=== PATIENT | male | born 1990 | race Caucasian/White ===

== ENCOUNTER 2025-02-15 09:38 | Inpatient (IN) ==
--- NOTE | 2025-02-15 10:41 | Emergency Department Note ---
ED Provider Note CHIEF COMPLAINT: [] HISTORY OF PRESENTING ILLNESS: [] REVIEW OF SYSTEMS: See HPI for pertinent positives and pertinent negatives. ALLERGIES: See below MEDICATIONS: See below PAST MEDICAL HISTORY: See below PHYSICAL EXAM: [] DIFFERENTIAL DIAGNOSIS: [] ED COURSE AND MEDICAL DECISION MAKING: HISTORY FROM INDEPENDENT HISTORIAN: [] MEDICATIONS GIVEN: [] MONITOR: Continuous equipment monitor phototypesetting: Order was placed for continuous equipment monitor phototypesetting. Patient was placed on the equipment monitor phototypesetting and continuous pulse ox. Patient was noted to be in normal sinus rhythm at an initial rate of [] bpm per my interpretation. EKG: EKG was interpreted by myself as []. INTERPRETATION OF LABS: I interpreted the labs with full lab results as below in the lab section of this note. Pertinent lab results discussed in the MDM section below. INTERPRETATION OF IMAGING: Imaging studies were interpreted by myself and read by radiology as per the imaging section of this note. EXTERNAL RECORDS REVIEWED: [] CHRONIC MEDICAL/SOCIAL CONDITIONS AFFECTING CARE: [] ESCALATION OF CARE CONSIDERED: [] CONSULTATIONS: [] PROCEDURES: [] MDM SUMMARY: The patient is a pleasant, [] who arrives to the emergency department for evaluation of the above-stated complaint. []. DIAGNOSIS: [] The chart was completed utilizing [employer] Speech voice recognition software. Grammatical errors, random word insertions, pronoun errors, and incomplete sentences are an occasional consequence of this system due to software limitations, ambient noise, and hardware issues. Any formal questions or concerns about the content, text, or information contained within the body of this dictation should be directly addressed to the provider for clarification. TREATMENT PLAN/DISCHARGE INSTRUCTIONS: [] Past Med/Surg History Problem List (Updated 02/14/25 @ 12:42 by TRELL Godinez) Dental infection (Acute) Pain, dental (Acute) Pain, dental No pertinent past medical history Medical History Insomnia Stomach problems No pertinent family history Surgical History History of hernia repair Family History Other Cardiac disease Social History Smoking Status: Current every day smoker Tobacco Type: Cigarettes Preferred Language: Luxembourger Feels Safe at Home: Yes Allergies Allergies Allergy/AdvReac Type Severity Reaction Status Date / Time No Known Allergies Allergy Verified 05/02/24 08:40 Home Meds Previous Rx's Medication Instructions Recorded oxycodone 5 mg tablet 5 mg PO Q6H PRN pain #15 tabs 06/27/24 pantoprazole 40 mg tablet,delayed 40 mg PO DAILY #30 tabs 06/27/24 release (Protonix) tramadol 50 mg tablet 50 mg PO BID PRN pain #31 tabs 12/01/24 amoxicillin 875 mg-potassium 1 tab PO BID 10 days #20 tabs 02/14/25 clavulanate 125 mg tablet oxycodone 5 mg tablet 5 mg PO Q8H PRN pain #10 tabs 02/14/25 Results & Data (ED) Vital Signs Vital Signs - 24 hr 02/15/25 09:41 Temperature 37.1 C Temperature Source Temporal Artery Scan Pulse Rate 78 Respiratory Rate 18 Respiratory Effort / Characteristics Non-Labored Spontaneous Respiratory Depth Normal Respiratory Pattern Regular Blood Pressure 156/99 H Blood Pressure Mean 118 Pulse Oximetry 97 Oxygen Delivery Method Room Air Sepsis Recent Fever Within 48 Hours No Sepsis New/Unexplained Change in Mental Status N/A Sepsis Action Taken by Nursing No Action Required Discharge Plan Visit Data Chief Complaint: Dental/Oral Stated Complaint: TOOTH PAIN ED Provider: [facility] Midlevel Provider: Debbi Henry Forms Stand Alone Forms: [facility] Prescriptions Prescriptions: No Action amoxicillin-pot clavulanate 875-125 mg tablet 1 tab PO BID 10 Days Qty: 20 0RF oxycodone 5 mg tablet 5 mg PO Q8H PRN (Reason: pain) Qty: 10 0RF pantoprazole [Protonix] 40 mg tablet,delayed release (DR/EC) 40 mg PO DAILY Qty: 30 0RF oxycodone 5 mg tablet 5 mg PO Q6H PRN (Reason: pain) Qty: 15 0RF tramadol 50 mg tablet 50 mg PO BID PRN (Reason: pain) Qty: 31 0RF Referrals Referrals: Jim Padron MD [Primary Care Provider] -
[2025-02-15] MEDS: oxyCODONE HCL IR 5 MG TAB (IMMEDIATE RELEASE) PO STA (10:46)
[2025-02-15] MEDS: ACETAMINOPHEN 500 MG TAB PO STA (10:47)
[2025-02-15] MEDS: KETOROLAC TROMETHAMINE 60 MG/2 ML VIAL IM STA (10:47)
[2025-02-15] MEDS: ONDANSETRON INJ 2 MG/ML 2 ML VIAL IV STA (11:58)
[2025-02-15] MEDS: MoRPHine SULFATE 4 MG/ML 1 ML CARP\\VIAL IV STA (12:00)
[2025-02-15] MEDS: SODIUM CHLORIDE 0.9% 1,000 ML IV ONE (12:05)
[2025-02-15] MEDS: AMPICILLIN/SULBACTAM SOD 3,000 MG/100 ML BAG IV SCH (12:09)
[2025-02-15 12:15] LABS: Basophils # (auto) 0.06 K/uL (0.00-0.20); Basophils % (auto) 0.7 %; Eosinophils # (auto) 0.14 K/uL (0.00-0.50); Eosinophils % (auto) 1.6 %; Hematocrit (blood only) 52.5 % (42.0-52.0); Hemoglobin 19.1 g/dl (14.0-18.0); Immature Granulocytes # (auto) 0.02 K/uL (0.01-0.20); Immature Granulocytes % (auto) 0.2 %; Lymphocytes # (auto) 1.82 K/uL (1.20-3.40); Lymphocytes % (auto) 21.3 %; Mean Corpuscular Hemoglobin 32.5 pg (25.0-34.0); Mean Corpuscular Hgb Conc 36.4 g/dL (32.0-36.0); Mean Corpuscular Volume 89.3 fL (80.0-100.0); Mean Platelet Volume 9.9 fL (9.4-12.4); Monocytes # (auto) 0.44 K/uL (0.11-0.59); Monocytes % (auto) 5.2 %; Neutrophils # (auto) 6.05 K/uL (1.40-6.50); Platelet Count 269 K/uL (130-400); RDW Coefficient of Variation 12.2 % (11.5-14.5); RDW Standard Deviation 40.1 fL (36.4-46.3); Red Blood Count 5.88 M/uL (4.70-6.10); White Blood Count 8.53 K/ul (4.8-10.8)
[2025-02-15] MEDS ORDERED: ONDANSETRON INJ 2 MG/ML 2 ML VIAL IV PRN (12:25)
--- NOTE | 2025-02-15 12:26 | History & Physical Report ---
Date of Service February 15, 2025 Assessment & Plan (1) Dental infection: (2) Pain, dental: Plan #Right lower jaw pain likely 2/2 infection vs. broken tooth -consult dentist -IV abx -pain control -fluids -NPO for now, unclear if procedure to be done today or not #GERD -PPI IVF, NPO for now PPI, DVT ppx History of Present Illness Primary Care Provider: Jim Padron MD 34M pmh GERD who presents with jaw pain. Patient states approximately 6d ago he began to have R lower jaw pain which worsened until yesterday, when he presented to the ED and was d/c with pain m edication and instructions to see a dentist outpatient. Patient's pain significantly increased so he represented. 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 On my evaluation patient's symptoms are improved, pain is still present but significantly improved. No other issues or problems. No fever, chills, other symptoms. Allergies Allergy/AdvReac Type Severity Reaction Status Date / Time No Known Allergies Allergy Verified 02/15/25 11:43 Home Medications Medication Instructions Recorded Confirmed Type No Known Home Medications 02/15/25 02/15/25 History Past Med/Surg History Problem List (Updated 02/14/25 @ 12:42 by TRELL Godinez) Dental infection (Acute) Pain, dental (Acute) Pain, dental No pertinent past medical history Medical History Insomnia Stomach problems No pertinent family history Surgical History History of hernia repair Family History Other Cardiac disease Social History Smoking Status: Current every day smoker Tobacco Type: Cigarettes Preferred Language: Slovenian Feels Safe at Home: Yes Review of Systems Constitutional: no fever and no chills Ear, Nose, Mouth, Throat: Jaw pain, specifically R lower Physical Exam Constitutional: WD/WN, vitals as above ENMT: Jaw pain on deep palpation right lower Results & Data Results & Data Vital Signs (Past 12 Hours) Vital Signs Temp Pulse Pulse Resp BP BP Pulse Ox 02/15/25 12:14 78 02/15/25 11:39 77 18 152/104 H 97 02/15/25 09:41 37.1 C 78 18 156/99 H 97 O2 Del Method 02/15/25 12:14 02/15/25 11:39 Room Air 02/15/25 09:41 Room Air Laboratory Results Abnormal lab results 02/15/25 Range/Units 12:02 Hgb 19.1 H (14.0-18.0) g/dl Hct 52.5 H (42.0-52.0) % MCHC 36.4 H (32.0-36.0) g/dL Code Status & VTE Plan VTE Prophylaxis Plan VTE Prophylaxis will be ordered: Yes
[2025-02-15 12:30] LABS: Albumin Level 5.2 gm/dl (3.4-5.0); Bilirubin,Total 0.7 mg/dl (0.2-1.0); Calcium 9.6 mg/dl (8.6-10.3)
[2025-02-15 12:36] LABS: Albumin Globulin Ratio 1.6 (0.9-2); BUN Creatinine Ratio 15.8 (10-20); Creatinine Clr Calc Pharmacy 196.6 ml/min; Globulin 3.3 gm/dl (2.5-4.0); Total Protein 8.5 gm/dl (6.0-8.3)
[2025-02-15 12:46] LABS: Prothrombin Time 10.8 Seconds (9.0-12.0)
[2025-02-15] MEDS: SODIUM CHLORIDE 0.9% 1,000 ML IV SCH (14:23)
[2025-02-15] MEDS: MoRPHine SULFATE 2 MG/ML CARP IV PRN (14:54)
[2025-02-15] MEDS ORDERED: ACETAMINOPHEN 325 MG TAB PO PRN (15:00)
[2025-02-15] MEDS ORDERED: NALOXONE NASAL SPRAY 4 MG ER HOMEPACK PRN (15:11)
[2025-02-15] MEDS: MoRPHine SULFATE 4 MG/ML 1 ML CARP\\VIAL IV PRN (15:36)
[2025-02-15] MEDS ORDERED: NALOXONE HCL 0.4 MG/1 ML VIAL/CARP IV PRN (15:56)
--- NOTE | 2025-02-15 16:52 | Oral/Maxillofacial Consult ---
Date of Consultation February 15, 2025 Assessment & Plan (1) Dental infection: (2) Pain, dental: (3) No pertinent past medical history: History of Present Illness Attending Physician: Obed Hernández MD History of Present Illness (1) Dental infection: (2) Pain, dental: Plan #Right lower jaw pain likely to infection and fractured tooth # 30 -consult [facility] -IV abx -pain control -fluids -NPO at midnight History of Present Illness Primary Care Provider: Jim Padron MD 34M H/O GERD who presents with acute jaw pain Failed outpatint treatment Observation in Hospital for pain control and IV fluids, IV antibiotics For OR tomorrow as per emergency OR schedule. Patient states approximately 6d ago he began to have R lower jaw pain which worsened until yesterday, when he first presented to the ED he was told to follow up with a dentist and given pain medication and instructions to see a dentist outpatient. Patient's pain significantly increased so he returned to ED in severe pain. 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 The oral exam shows that # 30 crown is completly gone with exposure of the nerves. Not able to touch the tooth as very painful. Radiolucent lesion is associated with the # 30 root apex is evident on the CT. Clinical localized swelling in the mucobuccal fold is starting to develop. No other issues or problems. No fever, chills, other symptoms. Treatment Plan: I will do an intraoral I and D tomorrow in the OR with extraction of # 30 May have diet as tolerated tonight NPO midnight OR in AM Consent signed Set up with general anesthesia in hospital due to complexity of the procedure I reviewed the treatment plan and consent with the patient Understanding was expressed. Time was given for questions regarding the surgery, risks and post op care. Discussed alternative to treatment--procedure as planned, Do not do surgery The following teeth are decayed and fractured and removal is indicated TAMANNA:# 30 with associated I&D Risks discussed: Bleeding,Pain,swelling,infection, dry socket, delayed healing, nerve injury to face,lips,tongue,chin area which could be permanent (rare). TMJ, jaw stiffness, change in bite (rare), ear pain (referred). Sinus problems like fistula or infection. Need to leave a small root fragment in place to avoid injury to nerve or sinus. Relationship of # 30 tooth roots to nerve and risk of jaw fracture-very rare. Allergies Allergy/AdvReac Type Severity Reaction Status Date / Time No Known Allergies Allergy Verified 02/15/25 11:43 Home Medications Medication Instructions Recorded Confirmed Type No Known Home Medications 02/15/25 02/15/25 History Past Med/Surg History Problem List Dental infection (Acute) Pain, dental (Acute) No pertinent past medical history Medical History Insomnia Stomach problems No pertinent family history Surgical History History of hernia repair Family History Cardiac disease Social History Smoking Status: Current every day smoker Tobacco Type: Cigarettes Preferred Language: Nicaraguan Feels Safe at Home: Yes Physical Exam Constitutional WD/WN, vitals as above Eyes PERRL, conjunctivae normal, anicteric sclerae Mouth fractured # 30, acute pain, abscessed soft tissue, no other dental issures noted, all otehr teeth w/o dental caries Neck trachea midline, no thyromegaly Respiratory normal respiratory effort, lungs clear to auscultation Auscultation: lungs clear to auscultation bilaterally Cardiovascular RRR, no murmur, no edema Rate/Rhythm: regular rate and regular rhythm Neurologic PERRL, EOMI, accommodation nl, no face palsy, no dysarthria, no para esthesia assorted with the pain, radiolucent lesion at apex of # 30. The pain is consistent with a dental infection I gave consideration to Trigeminal neuralgia but symptoms are not consistent with that diagnosis Psychiatric A+Ox3, very anxious due to severe pain Orientation: cooperative Lymphatic no cervical or axillary lymphadenopathy noted Allergies Allergy/AdvReac Type Severity Reaction Status Date / Time No Known Allergies Allergy Verified 02/15/25 11:43 Home Medications Medication Instructions Recorded Confirmed Type No Known Home Medications 02/15/25 02/15/25 History Patient History Medical History Insomnia Stomach problems No pertinent family history Surgical History History of hernia repair Family History Other Cardiac disease Social History Smoking Status: Current every day smoker Tobacco Type: Cigarettes Do You Dip or Chew Tobacco: No; Hx Alcohol Use: Yes Alcohol type: beer Hx Substance Use: Yes Last Used Substance: Days (ago) Last Used Substance Other:: pt has medical marijuana card. Preferred Language: Nicaraguan Communication Ability: Effective Rail Equipment Operator Required: No Beliefs That Will Affect Care: None Current Living Situation: Alone Current Living Situation Comment: lives at home with his children. Other Information That Helps Us Care for You: No Feels Safe at Home: Yes Safety Concerns: Feels Safe At This Time Assistive Devices: None Assistive Devices Comment: None needed. Results & Data Vital Signs (Past 12 Hours) Vital Signs Temp Pulse Pulse Resp BP BP Pulse Ox 02/15/25 13:59 36.6 C 70 15 165/108 H 97 02/15/25 13:33 65 13 96 02/15/25 13:30 162/108 H 02/15/25 13:03 62 14 96 02/15/25 13:00 169/103 H 02/15/25 12:14 78 02/15/25 11:39 77 18 152/104 H 97 02/15/25 09:41 37.1 C 78 18 156/99 H 97 O2 Del Method 02/15/25 13:59 Room Air 02/15/25 13:33 02/15/25 13:30 02/15/25 13:03 02/15/25 13:00 02/15/25 12:14 02/15/25 11:39 Room Air 02/15/25 09:41 Room Air PG Care Time/CCT Total # of Minutes Spent Total Time Spent with Patient: Total time spent is greater than 50% in coordination of care (as documented) at patient's floor/unit and/or counseling patient: Coding Level of Care Code 02838 OFFICE CONSULT LVL 01/05M Diagnoses Dental infection K04.7 Pain, dental K08.89 No pertinent past medical history Z78.9
[2025-02-15] MEDS: oxyCODONE/ACETAMINOPHEN 5mg/325mg TAB PO PRN (17:30)
[2025-02-15] MEDS: KETOROLAC 30 MG/ML VIAL IV ONE (21:08)
[2025-02-16 07:12] LABS: Basophils # (auto) 0.04 K/uL (0.00-0.20); Basophils % (auto) 0.7 %; Eosinophils # (auto) 0.21 K/uL (0.00-0.50); Eosinophils % (auto) 3.5 %; Hematocrit (blood only) 43.6 % (42.0-52.0); Hemoglobin 15.1 g/dl (14.0-18.0); Immature Granulocytes # (auto) 0.02 K/uL (0.01-0.20); Immature Granulocytes % (auto) 0.3 %; Lymphocytes # (auto) 1.83 K/uL (1.20-3.40); Lymphocytes % (auto) 30.8 %; Mean Corpuscular Hgb Conc 34.6 g/dL (32.0-36.0); Mean Corpuscular Volume 92.4 fL (80.0-100.0); Monocytes # (auto) 0.65 K/uL (0.11-0.59); Monocytes % (auto) 10.9 %; Neutrophils % (auto) 53.8 %; Platelet Count 190 K/uL (130-400); RDW Coefficient of Variation 12.3 % (11.5-14.5); RDW Standard Deviation 41.9 fL (36.4-46.3); Red Blood Count 4.72 M/uL (4.70-6.10); White Blood Count 5.95 K/ul (4.8-10.8)
[2025-02-16] MEDS: PANTOprazole 40 MG/10 ML SYR IV SCH (07:31)
[2025-02-16 07:33] LABS: BUN Creatinine Ratio 20.2 (10-20); Calcium 8.5 mg/dl (8.6-10.3); Chol HDL Ratio 4.7 (0-5); Creatinine Clr Calc Pharmacy 177.8 ml/min
[2025-02-16] MEDS ORDERED: MIDAZOLAM HCL 1 MG/ML 2ML VIAL ONE (09:54)
[2025-02-16] MEDS ORDERED: LIDOCAINE 2% 2 ML VIAL/AMP(20MG/ML) INFIL ONE (09:54)
[2025-02-16] MEDS ORDERED: ROCURONIUM BROMIDE 10 MG/ML 5 ML VIAL IV ONE (09:54)
[2025-02-16] MEDS ORDERED: fentaNYL citrate PF 100 MCG/2 ML VIAL ONE ×2 (09:54→12:11)
[2025-02-16] MEDS ORDERED: PROPOFOL IV EMULSION 10 MG/ML 20 ML VIAL IV ONE (09:54)
[2025-02-16] MEDS ORDERED: ONDANSETRON INJ 2 MG/ML 2 ML VIAL ONE (10:06)
--- NOTE | 2025-02-16 10:42 | Anesthesiology Consultation ---
Date of Service February 16, 2025 Assessment & Plan Chart Review Chart Review: Acceptable Risk for Surgery and Patient NOT seen in Pre Admission Testing Consults Requested none History Surgery Operation Date: 02/16/25 12:00 Proposed Procedures p Incision and Drainage of Right Lower Side of Mouth, Extraction of Tooth #30 - aMrio Oglesby, DMD Height/Weight Height: 6 ft 4 in Weight: 121.1 kg Allergies Allergy/AdvReac Type Severity Reaction Status Date / Time No Known Allergies Allergy Verified 02/15/25 11:43 Medications Home Medications Medication Instructions Recorded Confirmed Last Taken No Known Home Medications 02/15/25 02/15/25 Unknown Active Medications Generic Name Dose Route Start Last Admin Trade Name Freq PRN Reason Stop Dose Admin Ampicillin Sodium/Sulbactam Sodium 3,000 mg in 100 mls @ 200 mls/hr 02/15/25 11:45 02/16/25 06:53 Unasyn IV 02/17/25 11:44 Infused Q6H DEUCE Infusion Sodium Chloride 1,000 mls @ 125 mls/hr 02/15/25 12:30 02/16/25 05:37 Nss IV 02/18/25 12:29 125 mls/hr .Q8H DEUCE Administration Pantoprazole Sodium 40 mg in 10 mls @ 5 mls/min 02/16/25 09:00 02/16/25 07:31 Protonix IV 03/18/25 08:59 5 mls/min DAILY DEUCE Administration Morphine Sulfate 2 mg 02/15/25 12:28 02/15/25 14:54 Morphine Sulfate 2 Mg/Ml Carp IV 03/01/25 12:27 2 mg Q3H PRN Administration Pain (6,7,8,9,10) Morphine Sulfate 4 mg 02/15/25 15:00 02/16/25 06:00 Morphine Sulfate 4 Mg/Ml 1 Ml Carp\Vial IV 03/01/25 14:59 4 mg Q3H PRN Administration Breakthrough Pain Oxycodone/Acetaminophen 2 tab 02/15/25 16:56 02/16/25 07:35 Oxycodone/Acetaminophen 5mg/325mg Tab PO 03/01/25 16:55 2 tab Q4H PRN Administration Pain NPO Date Last Intake of Fluids: 02/15/25 Time Last Intake of Fluids: 23:59 Date Last Intake of Solids: 02/15/25 Time Last Intake of Solids: 23:59 Past Medical History Medical History Insomnia Stomach problems No pertinent family history Past Family History Family History Other Cardiac disease Past Surgical History Surgical History History of hernia repair Social History Smoking Status: Current every day smoker Do You Dip or Chew Tobacco: No Hx Alcohol Use: Yes Alcohol type: beer alcohol intake frequency: a few times a week Hx Substance Use: Yes substance use type: marijuana Last Used Substance: Days (ago) Last Used Substance Other:: pt has medical marijuana card. Physical Exam Vital Signs Last Vital Signs Temp 36.4 C L 02/16/25 07:16 Pulse 63 02/16/25 07:16 Resp 16 02/16/25 07:16 BP 164/99 H 02/16/25 07:16 Pulse Ox 98 02/16/25 07:16 O2 Del Method Room Air 02/16/25 07:16 Testing Laboratory Results 02/16/25 05:51 02/16/25 05:51 PT 10.8 Seconds (9.0-12.0) 02/15/25 12:02 INR 1.0 (0.9-1.1) 02/15/25 12:02
[2025-02-16] MEDS: ACETAMINOPHEN 1,000 MG/100 ML VIAL IV STA (10:49)
[2025-02-16] MEDS: HYDROmorphone INJ 0.5 MG/0.5 ML SYR IV STA (11:32)
--- NOTE | 2025-02-16 11:43 | History & Physical Bridge Note ---
Date of Service February 16, 2025 History & Physical Bridge Note I have examined the patient, reviewed the History & Physical and in the interval since the performance of the History & Physical I have noted the following changes of clinical significance: no changes noted. The pain is controlled somewhat with the Percocet, swelling still present. Plan--I&D with extraction of # 30 Hopefully can be discharged after meets all criteria for D/C Rx Pain Meds and antibiotics.
[2025-02-16] MEDS: CHLORHEXIDINE GLUCONATE 0.12% 480 ML MT ONE (12:01)
[2025-02-16] MEDS ORDERED: DEXAMETHASONE SOD INJ 4 MG/ML VIAL ONE (12:18)
[2025-02-16] MEDS ORDERED: SUGAMMADEX SODIUM 200 MG/2 ML VIAL IV ONE (12:20)
[2025-02-16] MEDS: BUPIVACAINE/EPINEPHRINE 0.5% 1:200,000 1.8 ML CARP ONE (12:21)
--- NOTE | 2025-02-16 13:01 | Anesthesiology Progress Note ---
Date of Service February 16, 2025 Anesthesia Post Procedure Vital Signs Vital Signs: Temp Pulse Pulse Resp BP BP Pulse Ox 02/16/25 12:55 73 13 146/90 H 98 02/16/25 12:45 69 16 160/96 H 99 02/16/25 12:35 36.1 C L 67 16 151/117 H 100 02/16/25 07:16 36.4 C L 63 16 164/99 H 98 02/15/25 20:15 36.6 C 75 18 164/95 H 97 02/15/25 13:59 36.6 C 70 15 165/108 H 97 02/15/25 13:33 65 13 96 02/15/25 13:30 162/108 H 02/15/25 13:03 62 14 96 O2 Del Method O2 Flow Rate 02/16/25 12:55 Oxymask 5 02/16/25 12:45 Oxymask 5 02/16/25 12:35 Oxymask 11 02/16/25 07:16 Room Air 02/15/25 20:15 Room Air 02/15/25 13:59 Room Air 02/15/25 13:33 02/15/25 13:30 02/15/25 13:03 Pain Intensity Mouth: Pain Intensity: 9 Transfer of Care Handoff Completed per policy Notes Mental Status: alert / awake / arousable Patient Amnestic to Procedure: Yes Nausea / Vomiting: adequately controlled Pain: adequately controlled Airway Patency, RR, SpO2: stable & adequate BP & HR: stable & adequate Hydration State: stable & adequate Anesthetic Complications: no major complications apparent and Pt Satisfied with anesthetic care
--- NOTE | 2025-02-16 13:08 | Operative Report ---
PG Post Operative Report Pre & Post Diagnosis Operation Date: 02/16/25 12:00 Pre-Op Diagnosis: Dental Infection Post-Op Diagnosis: Dental Infection I identified the patient and participated in the time-out.: Yes Procedure Operation Date: 02/16/25 12:00 Actual Procedures p Incision and Drainage of Right Lower Side of Mouth, Extraction of Tooth #3 ((Right) - Mario Oglesby DMD Surgeon Mario Oglesby DMD Principal Librarian none Estimated Blood Loss 2 Findings Consistent with Post-Op Diagnosis swollen mucobuccal fold and fractured # 30 Acute pain Specimens none Drains none Anesthesia Type General Complications none Disposition Accompanied Patient To Recovery: Yes Indications acute infection with intense pain not controlled as out patient Description of Procedure Actual Procedures K04.6 Infected tooth # 30 K12.1 Infected mucobuccal space lower right CPT 39369 I&D [id number] Extraction # 30 Incision and Drainage right mucobuccal space abscess; Removal of Tooth #30 (Not Applicable) - Mario Oglesby DMD Once cleared for surgery general anesthesia was achieved, the eyes were protected by the anesthesia dept criteria. A time out was take for patient ID, antibiotics, equipment and position antoni ification once all agreed the procedure began. Local anesthesia using Marcaine with a vasoconstrictor ( 1.8 ml per site) given into right inferior alveolar nerve A throat pack was placed after the oral cavity was irrigated with saline. Once a surgical level of anesthesia was obtained and the local anesthesia was given time for the blocks the surgery was started. I turned my attention to the infection which was located in the mucobuccal space The tongue was elevated and there was also swelling associated with tooth # 30( see CT scan report) Incision and Drainage CPT 76911--C03.1 Using a 15 blade an incision was made lateral to the alveolar ridge in the swollen mucobuccal space. Once the incision was made a lot of pus extruded from the site. A curved hemostat was carefully placed into the infected space along the lateral mandible to drain the subperiosteal space. Some further drainage was now allowed to escape. I palpated the cheek area and no further drainage was expressed. The area was irrigated with at least 100 ml of NS solution. I now turned my attention to remove the # 30 tooth. Lower # 30 A0906--D97.6 The full thick Muco-periosteal flap was made on the facial aspect from # 31-28. The flap was reflected to expose the the subperiosteal space the bone adjacent to # 30. The rongeur was used to remove bone, the tooth was removed with a 301 elevator, the mental nerve was intact, there was a large amount of granulation tissue on the apex and some more pus that was expressed. I trimmed the irregular bone and sutured the sites closed with a 2-0 chromic. I inspected the sites to insure all bleeding was controlled. I removed the throat pack and suctioned the throat. A gauze pressure dressings was placed. All instrument and sponge count was correct. The patient was allowed to awake from the anesthesia. Once full awake the anesthesia tube was removed and the patient was taken to the recovery room with all vital sign stable. The patient tolerated the surgery very well. He will transferred to the floor and once all D/C criteria are met will be discharged to home. I will follow the patient in my office, Rx and instructions will be given upon discharge. Follow up as needed I attest to the content of the Intraoperative Record and any orders documented therein. Any exceptions are noted below.
--- NOTE | 2025-02-16 13:18 | Discharge Summary ---
Date of Service February 16, 2025 Admission HPI Per Admitting Provider 34M pm GERD who presents with jaw pain. Patient states approximately 6d ago he began to have R lower jaw pain which worsened until yesterday, when he presented to the ED and was d/c with pain medication and instructions to see a dentist outpatient. Patient's pain significantly increased so he represented. ED SPECIAL SYSTEMS TECHNICIAN contacted [facility] Dr Oglesby who recommended admission w/IV abx and consult. On my evaluation patient's symptoms are improved, pain is still present but significantly improved. No other issues or problems. No fever, chills, other symptoms. To OR for I&D with extraction of # 30 Problem: Pain,swelling located---lower right Finding: There is a carious, fractured and infected tooth at site#:30 Plan: Surgical removal of the following # 30 with I&D Procedure report: After a complete H&P/ vital signs and oral exam was completed the patient was ready for the surgical procedure. Informed consent was reviewed and the consent form was signed. I gave them time to discuss any questions and if I explained the surgery that I will be performing to their understanding. The patient was positioned and light adjusted, Peridex mouth rinse was used and a final time out was taken to review the correct procedure, once agreed the local anesthesia was given in the standard fashion for the area of surgery. Local Anesthesia: Using 1.8 cc Xylocaine 2% with 1/100,000 epi as a block and 1 cc Articaine 4% with epi as an infiltration, profound anesthesia was obtained within 5-10 jessy yuridia. Surgical Note: Now using a periosteal elevator the tissue was reflected to expose the alveolar bone. The rongues was used to remove bone to allow the forceps to engage solid tooth structure. Using a controlled force the tooth was extracted in the standard manner. Once removed the roots were inspected and the socket was curetted. Sutures used: 2-0 Chromic A gauze pressure pack was placed over the socket and the patient was instructed to bite for 10 minutes. Rx given: Augmentin and Percocet Post Op instructions: At this time I inspected the site: bleeding was controlled, instructions given by nursing staff (diet, oral care, use of gauze, follow up, pain management, activity, no driving if narcotics were Rx.) Discharge: The patient tolerated the procedure extremely well Patient was discharged from Recovery to floor and then OK for D/C once all D/C are met. Surgeon: Mario Oglesby DMD Oral Maxillofacial Surgery [facility] Admission Exam (Per Admitting) ENMT pain and swelling from fractured # 30 Discharge Data Consultations 02/15/25 11:51 ED Decision to Admit Stat 02/15/25 12:27 Consult OMS Routine Procedures Performed Operation Date: 02/16/25 12:00 Actual Procedures p Incision and Drainage of Right Lower Side of Mouth, Extraction of Tooth #30(Right) - Mario Oglesby, DMD Discharge Instructions ADDITIONAL ACTIVITY RECOMMENDATIONS: * [place] teeth after every meal. It is very important to keep your mouth clean to prevent infection. * Starting tonight rinse with the Peridex as directed then 2 x a day * it is very important to keep well hydrated, this prevents fever and possible dry socket pain SPECIAL CARE INSTRUCTIONS: *It is not uncommon that between day 2-4 that your swelling will be at its worst this is very normal, do not be alarmed. * Keep ice on the side of your face for the next 24 to 36 hours. This will help keep the swelling down. * After 36 hours, apply heat (hot water bottle or heating pad) for the next two days, as often as possible. * Tomorrow start rinsing your mouth with 1/2 teaspoon salt in 8 ounces warm water. This rinse should be used every 4-6 hours. * You may experience slight nausea. To prevent this, never take your medication on an empty stomach. If nauseated, take small sips of edin merly until you feel better; then you may start on applesauce and toast. * A certain amount of bleeding is to be expected. It is often possible to control mild oozing by placing folded gauze over the area and biting down for 30 minutes. If you are unable to control excessive bleeding, * You may experience some discomfort for a few days. If pain or swelling increases, Call Dr Oglesby * Return to the office for a follow up check up on: call if needed * office address--[address] phone # [phone] Coding Level of Care Code None
[2025-02-16 13:27] VITALS: O2SAT 97
[2025-02-16] MEDS ORDERED: oxyCODONE/ACETAMINOPHEN 5mg/325mg TAB PO PRN (14:07)
[2025-02-16 14:15] VITALS: PULSE 86; RESP 15; TEMP 97.9
[2025-02-16 14:43] VITALS: BP 150/87
--- NOTE | 2025-02-16 16:57 | Hospitalist Progress Note ---
Date of Service February 16, 2025 Assessment & Plan (1) Dental infection: (2) Pain, dental: Plan #Right lower jaw pain likely 2/2 infection vs. broken tooth -[facility] consult, appreciate recs, see discharge summary and discharge list for details -given dilaudid IV x1 for pain preop, ordered by this provider -medically stable for discharge #GERD -PPI I spent a total of 30 minutes in direct patient care, including [id number] time with the patient and/or family, reviewing medical records, ordering and reviewing diagnostic tests, and coordinating care with other healthcare providers. This time includes: history taking, physical examination, medical decision making, counseling, ECG interpretation, imaging interpretation, lab interpretation, orders, and education, excluding time spent in the performance of separately billed services. Admission and Anticipated Discharge Date Admission Date: February 15, 2025 Subjective Patient seen and examined at bedside. Patient doing well today. In a bit of pain preprocedure. Review of Systems Review of Systems: CONSTITUTIONAL: Patient denies fevers, chills, sweats and weight changes. EYES: Patient denies any visual symptoms. EARS, NOSE, AND THROAT: tooth pain CARDIOVASCULAR: Patient denies chest pains, palpitations, orthopnea and paroxysmal nocturnal dyspnea. RESPIRATORY: No dyspnea on exertion, no wheezing or cough. GI: No nausea, vomiting, diarrhea, constipation, abdominal pain, hematochezia or melena. : No urinary hesitancy or dribbling. No nocturia or urinary frequency. No abnormal urethral discharge. MUSCULOSKELETAL: No myalgias or arthralgias. NEUROLOGIC: No chronic headaches, no seizures. Patient denies numbness, tingling or weakness. PSYCHIATRIC: Patient denies problems with mood disturbance. No problems with anxiety. ENDOCRINE: No excessive urination or excessive thirst. DERMATOLOGIC: Patient denies any rashes or skin changes. Physical Exam Physical Exam: Gen: A&O 3 NAD HEENT: NCAT, EOMI, not icteric. External ears normal. No rhinorrhea. Moist mucous membranes. Noted dental complications Neck: Supple, full range of motion, no observable masses, No meningeal sign. Lungs: No Respiratory distress. CV: RRR, no edema. Abdomen: Soft, nondistended, No rebound tenderness. MSK: No joint swelling, no redness. Skin: No rashes, petechiae, lesions. Normal color per patient. Neuro: Normal Gait, Grossly intact. Psych: Appropriate for situation. Results & Data Results & Data Vital Signs (Past 12 Hours) Vital Signs Temp Pulse Resp BP Pulse Ox O2 Del Method O2 Flow Rate 02/16/25 14:43 150/87 H 02/16/25 14:23 86 02/16/25 14:11 36.6 C 86 15 177/118 H 97 Room Air 02/16/25 13:20 36.7 C 88 16 148/85 H 97 Room Air 02/16/25 13:05 36.5 C 75 16 162/97 H 95 Room Air 02/16/25 12:55 73 13 146/90 H 98 Oxymask 02/16/25 12:45 69 16 160/96 H 99 Oxymask 02/16/25 12:35 36.1 C L 67 16 151/117 H 100 Oxymask 02/16/25 07:16 36.4 C L 63 16 164/99 H 98 Room Air Laboratory Results -personally reviewed, no leukocytosis, creatinine at baseline
== END 2025-02-16 15:23 | disposition home or self-care (01) | DRG 137 ==
LOC: ED 09:38 → SUATTDRO 12:25 → 3N 12:25